=== PATIENT | female | born 1980 | race Two or more races ===

== ENCOUNTER 2018-01-25 09:14 | Outpatient (CLI) | payer OTHER ==
[~2018-01-25 09:14] MED LIST: LEVOXYL75 MCG PO
== END 2018-01-25 15:28 | disposition home or self-care (01) ==
LOC: SONOGRAMA 09:14
DX: E06.5 Other chronic thyroiditis (principal)

== ENCOUNTER 2018-12-21 11:46 | Outpatient (CLI) | payer OTHER | END 2018-12-21 11:47 | disposition home or self-care (01) | LOC: SONOGRAMA 11:46 | DX: E06.5 Other chronic thyroiditis (principal) ==

== ENCOUNTER 2025-01-16 08:54 | Outpatient (CLI) | payer OTHER | END 2025-01-16 08:56 | disposition home or self-care (01) | LOC: TOM 08:54 | DX: N93.8 Other specified abnormal uterine and vaginal bleeding (principal); N97.9 Female infertility, unspecified ==